=== PATIENT | female | born 1955 | race Caucasian/White ===

== ENCOUNTER 2020-07-14 10:37 | Outpatient (REF) | payer MEDICARE, SELFPAY ==
[2020-07-14 13:51] LABS: Glucose Urine UA NEG (NEG); Leukocyte Esterase Urine NEG (NEG); Nitrite Urine NEG (NEG); Specific Gravity - Urine >= 1.030 (1.005-1.025); Urine Blood NEG (NEG); Urine Ketones NEG (NEG); Urine Protein NEG (NEG-TRACE)
[2020-07-14 13:52] LABS: Appearance Urine CLOUDY; Color Urine YELLOW
[2020-07-14 13:55] LABS: Hematocrit 41.7 % (37-47); Hemoglobin 13.7 g/dl (12.0-16.0); Mean Corpuscular HGB Conc 32.9 g/dl (31.0-35.0); Mean Corpuscular Volume 88.2 fL (80-98); Mean Platelet Volume 10.3 fL (9.4-12.3); Platelet Count 286 X10*3/uL (160-400); Red Blood Count 4.73 X10*6/uL (4.20-5.50); Red Cell Distribution Width 14.5 % (11.0-16.0); White Blood Count 8.5 X10*3/uL (4.8-10.8)
[2020-07-14 13:58] LABS: RBC Urine 0 /HPF (0); WBC Urine 0 /HPF (0-4)
[2020-07-14 13:59] LABS: Amorphous Sediment Urine 4+ /LPF
[2020-07-14 14:21] LABS: Alanine Aminotransferase 12 U/L (0-31); Albumin Level 3.9 g/dL (3.5-5.0); Alkaline Phosphatase 118 U/L (39-117); Anion Gap 12 (12-20); Aspartate Amino Transferase 14 U/L (5-31); Bilirubin Total 0.4 mg/dL (0.0-1.0); Blood Urea Nitrogen 18 mg/dL (9-16); Calcium 8.9 mg/dL (8.4-10.2); Carbon Dioxide 25 mmol/L (22-29); Chloride 108 mmol/L (96-108); Cholesterol 159 mg/dL; Estimated Glomerular Filt Rate > 60; Glucose Fasting 97 mg/dL (60-99); HDL Cholesterol 47 mg/dL; LDL Cholesterol Calculated 89 mg/dl; Potassium 4.2 mmol/L (3.3-5.1); Sodium 141 mmol/L (135-145); Total Protein 6.8 g/dL (6.5-8.0); Triglycerides 116 mg/dL
[2020-07-14 14:44] LABS: TSH reflex Free T4 1.61 uIU/mL (0.32-4.0)
== END 2020-07-14 10:38 | disposition home or self-care (01) ==
LOC: HO.HMGCLDS 10:37
PROVIDERS: PCP Nurse Practitioner Family; Visit Provider Internal Medicine
DX: Z00.00 Encounter for general adult medical examination without abnormal findings (principal); E03.9 Hypothyroidism, unspecified
CPT/HCPCS: 36415; 80053; 80061; 81001; 84443; 85027

== ENCOUNTER 2022-12-17 13:41 | Outpatient (AMB) | payer MEDICARE, SELFPAY ==
[2022-12-17 14:16] VITALS: BP 116/60; PULSE 61; TEMP 36.3; O2SAT 98; BMI 41.5
--- NOTE | 2022-12-17 14:16 | AM.OFFWIN_ITS ---
Intake Vital Signs 12/17/22 14:16 Height 5 ft 2 in Weight 227 lb BMI 41.5 BP 116/60 Blood Pressure Location Rt brachial Position Sitting Pulse 61 Pulse Source Pulse Oximeter Temp 97.4 F Temp Source Temporal Artery Scan Pulse Oximetry (%) 98 Intake Visit Reasons: EP, cough, sore throat (masked) Intake Note: pt is here for c.o cough, sore throat Patient Tobacco Use Status: Current someday Tobacco user Allergies No Known Allergies Allergy (Verified 12/17/22 14:16) Do you need a note to return to daycare/school/sports/work: Yes HPI EP, cough, sore throat (masked) 2 HPI Details Patient presents for a sick visit. Reporting symptoms of sinus congestion, sore throat and difficulty swallowing. Low-grade fever. No family member is sick. No recent travel. Patient reports symptoms of malaise and fatigue. [facility] Medical History Left wrist fracture History of ectopic Hypothyroidism Annual physical exam Surgical History H/O tubal ligation Hx of section Family History Father Asthma Social History Housing: House Alcohol intake: never Patient Tobacco Use Status: Current someday Tobacco user Cigarettes Per Day: 2 Years Smoked: 17 years old e-Cigarette/Vaping Use: Never Used service: No Current occupational status: employed Cognitive needs: No Hearing needs: No Vision needs: Yes (has glasses) Physical Exam Vital Signs: Last Vital Signs Temp 97.4 F 12/17/22 14:16 Pulse 61 12/17/22 14:16 BP 116/60 12/17/22 14:16 Pulse Ox 98 12/17/22 14:16 BMI result Body Mass Index 41.5 Const General: cooperative and healthy appearing Nutritional Appearance: well nourished Orientation/consciousness: patient oriented x3 Limitations: no limitations HEENT Head: Yes normal to inspection Eyes General: appearance normal, both eyes and all related structures Neck Neck: Yes normal visual inspection Chest Chest palpation & inspection: normal palpation of entire chest wall Resp Effort & Inspection: normal respiratory effort Neuro General: patient oriented x3 Results AMB Rapid Strep AMB Rapid Strep Negative Last Edit by Clement Henson CMA on 12/17/22 14 :41 Results Reviewed Results Reviewed: Laboratory Last Values Strep Scn Rapid Clinic Negative 12/17/22 14:25 Assessment & Plan Assessment & Plan (1) Upper respiratory tract infection: Code(s): J06.9 - Acute upper respiratory infection, unspecified Plan: Antibiotics ordered. Increase fluid intake. Tylenol for aches and pains. If symptoms worsen, follow-up here for a recheck. Orders: Orders AMB Rapid Strep Screen Today Z13.9 - Encounter for screening, unspecified Medications: New azithromycin take 500 mg today (day 1), then 250 mg for 4 days (days 2-5) PO 6 tabs 0RF prednisone 60 mg (3 x 20 mg) PO DAILY 9 tabs 0RF Coding Level of Care Code Est Pt Level 3 (47501) Diagnoses Upper respiratory tract infection J06.9
== END 2022-12-17 15:13 | disposition home or self-care (01) ==
PROVIDERS: PCP Nurse Practitioner Family; Visit Provider Internal Medicine
DX: J06.9 Acute upper respiratory infection, unspecified (principal); J02.9 Acute pharyngitis, unspecified
CPT/HCPCS: 87880; 99213

== ENCOUNTER 2022-12-17 16:38 | Outpatient (REF) | payer MEDICARE, SELFPAY ==
[2022-12-17 17:28] LABS: Influenza A PCR NEGATIVE (Negative); Influenza B PCR NEGATIVE (Negative); Resp Syncy Virus RNA Qual PCR NEGATIVE (Negative); SARS COV2 PCR INHOUSE NEGATIVE (Negative)
== END 2022-12-17 16:39 | disposition home or self-care (01) ==
LOC: HO.LNP 16:38
PROVIDERS: Visit Provider Internal Medicine
DX: Z11.52 Encounter for screening for COVID-19 (principal); Z20.822 Contact with and (suspected) exposure to COVID-19; R43.9 Unspecified disturbances of smell and taste
CPT/HCPCS: 0241U

== ENCOUNTER 2023-10-23 08:36 | Outpatient (REF) | payer MEDICARE, SELFPAY ==
[2023-10-23 10:09] LABS: MANUAL DIFF FLAG NO
[2023-10-23 10:13] LABS: Basophils Absolute Auto 0.1 X10*3/uL (0.0-0.2); Basophils Percent Auto 1.1 % (0-2); Eosinophils Absolute Auto 0.4 X10*3/uL (0.0-0.4); Eosinophils Percent Auto 5.1 % (0-4); Hematocrit 39.5 % (37.0-47.0); Hemoglobin 13.4 g/dl (12.0-16.0); Imm Gran Abs Auto 0.05 X10*3/uL (0.00-0.03); Imm Gran Pct Auto 0.6 % (0.0-0.4); Lymphocytes Absolute Auto 2.1 X10*3/uL (1.2-4.9); Lymphocytes Percent Auto 25.3 % (20-40); Mean Corpuscular HGB Conc 33.9 g/dl (31.0-35.0); Mean Corpuscular Hemoglobin 31.5 pg (27.0-33.0); Mean Corpuscular Volume 92.9 fL (80.0-98.0); Mean Platelet Volume 9.8 fL (9.4-12.3); Monocytes Absolute Auto 0.6 X10*3/uL (0.1-1.2); Monocytes Percent Auto 7.6 % (2-11); Neutrophils Percent Auto 60.3 % (45-73); Platelet Count 263 X10*3/uL (160-400); Red Blood Count 4.25 X10*6/uL (4.20-5.50); Red Cell Distribution Width 15.1 % (11.0-16.0); White Blood Count 8.3 X10*3/uL (4.8-10.8)
[2023-10-23 10:25] LABS: Appearance Urine Cloudy; Color Urine Dark Yellow; Glucose Urine UA Negative (Negative); Leukocyte Esterase Urine Negative (Negative); Nitrite Urine Negative (Negative); PH 5.5 (5.0-9.0); Specific Gravity - Urine 1.025 (1.005-1.025); Urine Blood Negative (Negative); Urine Ketones Negative (Negative); Urine Protein Negative (Neg-Trace)
[2023-10-23 10:28] LABS: Estimated Average Glucose 105 mg/dL; Hemoglobin A1c % 5.3 % (<6.0)
[2023-10-23 10:53] LABS: Alanine Aminotransferase 12 U/L (0-31); Albumin Level 3.7 g/dL (3.5-5.0); Alkaline Phosphatase 100 U/L (39-117); Anion Gap 10 (12-20); Aspartate Amino Transferase 14 U/L (5-31); Bilirubin Total 0.4 mg/dL (0.0-1.0); Blood Urea Nitrogen 13 mg/dL (9-16); Calcium 8.6 mg/dL (8.4-10.2); Carbon Dioxide 25 mmol/L (22-29); Chloride 110 mmol/L (96-108); Cholesterol 163 mg/dL (<200); Estimated Glomerular Filt Rate > 60; Glucose Fasting 102 mg/dL (60-99); HDL Cholesterol 46 mg/dL (>40); LDL Cholesterol Calculated 92 mg/dL (<100); Sodium 141 mmol/L (135-145); TSH reflex Free T4 4.73 uIU/mL (0.32-4.0); Total Protein 6.7 g/dL (6.5-8.0); Triglycerides 128 mg/dL (<150); Vitamin D 25-OH Total 22.9 ng/mL (>30)
[2023-10-23 10:58] LABS: Creatinine Urine 213.12 mg/dL
[2023-10-23 11:41] LABS: Free T4 (Free Thyroxine) 1.01 ng/dL (0.71-1.85)
== END 2023-10-23 08:37 | disposition home or self-care (01) ==
LOC: HO.HMGCLDS 08:36
PROVIDERS: PCP Nurse Practitioner Family; Visit Provider Nurse Practitioner Family
DX: E11.9 Type 2 diabetes mellitus without complications (principal); I48.91 Unspecified atrial fibrillation; E03.9 Hypothyroidism, unspecified; E55.9 Vitamin D deficiency, unspecified; Z78.0 Asymptomatic menopausal state
CPT/HCPCS: 36415; 80053; 80061; 81003; 82043; 82306; 82570; 83036; 84439; 84443; 85025

== ENCOUNTER 2024-04-03 11:08 | Outpatient (REF) | payer MEDICARE, SELFPAY ==
--- OUTSIDE RECORDS SUMMARY | 2024-04-03 12:12 | XMS_ITS | Clinical Summary ---
[facility] [address] [place] [address] Care Team Providers Care Employment Training Specialist Name Role Phone Girma Reynolds MD Primary Care Provider [phone] Social History Tobacco Use Types Packs/Day Years Used Date Smoking Tobacco: Never Assessed Sex and Gender Information Value Date Recorded Sex Assigned at Not on file Gender Identity Not on file Sexual Orientation Not on file Plan of Treatment Health Maintenance Due Date Last Done Comments Breast Cancer Screening 1954 DTaP,Tdap,and Td Vaccines (1 - Tdap) 1973 Zoster Vaccines (1 of 2) 2004 Pneumococcal Vaccine: 65+ Ye ars (1 of 1 - PCV) 09/26/2019 COVID-19 Vaccine (2023-2 5 season) 2023 Influenza Vaccine (#1) 2023 Colorectal Cancer Screening: Colonoscopy 12/03/2023 Depression Screening 12/03/2023 Falls Risk Assessment 12/03/2023 Hepatitis C Screening 12/03/2023 Osteoporosis Screening (Bone Density Screening) 12/03/2023 Social Influencers of Health Screening 12/03/2023 RSV Immunization Patients 60 + Years Old (1 - 1-dose 75+ series) 2029 HIB Vaccines Aged Out No longer eligi ble based on patient's age to complete this topic HPV Vaccines Aged Out No longer eligi ble based on patient's age to complete this topic Hepatitis A Vaccines Aged Out No long er eligible based on patient's age to complete this topic Hepatitis B Vaccines Aged Out No long er eligible based on patient's age to complete this topic IPV Vaccines Aged Out No longer eligi ble based on patient's age to complete this topic MMR Vaccines Aged Out No longer eligi ble based on patient's age to complete this topic Meningococcal ACWY Vaccine Aged Out N o longer eligible based on patient's age to complete this topic RSV Immunization Patients Un ty 20 months Aged Out No longer eligible b ased on patient's age to complete this topic Varicella Vaccines Aged Out No longer eligible based on patient's age to complete this topic Care Teams Employment Training Specialist Relationship Specialty Start Date End Date Girma Reynolds MD PCP - General 12/02/14
[2024-04-03 13:36] LABS: MANUAL DIFF FLAG NO
[2024-04-03 13:48] LABS: Basophils Absolute Auto 0.1 X10*3/uL (0.0-0.2); Basophils Percent Auto 0.7 % (0-2); Eosinophils Absolute Auto 0.4 X10*3/uL (0.0-0.4); Eosinophils Percent Auto 4.5 % (0-4); Hematocrit 40.4 % (37.0-47.0); Hemoglobin 13.5 g/dl (12.0-16.0); Imm Gran Abs Auto 0.04 X10*3/uL (0.00-0.03); Imm Gran Pct Auto 0.5 % (0.0-0.4); Lymphocytes Absolute Auto 2.2 X10*3/uL (1.2-4.9); Lymphocytes Percent Auto 25.8 % (20-40); Mean Corpuscular HGB Conc 33.4 g/dl (31.0-35.0); Mean Corpuscular Hemoglobin 31.7 pg (27.0-33.0); Mean Corpuscular Volume 94.8 fL (80.0-98.0); Mean Platelet Volume 9.6 fL (9.4-12.3); Monocytes Absolute Auto 0.7 X10*3/uL (0.1-1.2); Monocytes Percent Auto 8.5 % (2-11); Neutrophils Absolute Auto 5.2 x10*3/uL (2.0-8.3); Platelet Count 268 X10*3/uL (160-400); Red Blood Count 4.26 X10*6/uL (4.20-5.50); Red Cell Distribution Width 15.1 % (11.0-16.0); White Blood Count 8.6 X10*3/uL (4.8-10.8)
[2024-04-03 14:07] LABS: Appearance Urine Clear; Color Urine Yellow; Glucose Urine UA Negative (Negative); Leukocyte Esterase Urine Negative (Negative); Nitrite Urine Negative (Negative); PH 6.5 (5.0-9.0); Urine Blood Negative (Negative); Urine Ketones Negative (Negative); Urine Protein Negative (Neg-Trace)
[2024-04-03 14:19] LABS: Alanine Aminotransferase 12 U/L (0-31); Albumin Level 3.8 g/dL (3.5-5.0); Alkaline Phosphatase 96 U/L (39-117); Anion Gap 15 (12-20); Aspartate Amino Transferase 19 U/L (5-31); Bilirubin Total 0.4 mg/dL (0.0-1.0); Blood Urea Nitrogen 15 mg/dL (9-16); Calcium 8.8 mg/dL (8.4-10.2); Carbon Dioxide 25 mmol/L (22-29); Chloride 106 mmol/L (96-108); Estimated Glomerular Filt Rate > 60; Glucose Random 91 mg/dL (60-115); Potassium 4.4 mmol/L (3.3-5.1); Sodium 142 mmol/L (135-145); TSH reflex Free T4 2.13 uIU/mL (0.32-4.0); Total Protein 7.3 g/dL (6.5-8.0)
== END 2024-04-03 11:09 | disposition home or self-care (01) ==
LOC: HO.HMGCLDS 11:08
PROVIDERS: PCP Nurse Practitioner Family; Visit Provider Nurse Practitioner Family
DX: E03.9 Hypothyroidism, unspecified (principal)
CPT/HCPCS: 36415; 80053; 81003; 84443; 85025

== ENCOUNTER 2024-04-14 14:02 | Outpatient (AMB) | payer MEDICARE, SELFPAY ==
--- NOTE | 2024-04-14 14:04 | A.OFFVIS_ITS ---
Intake Vital Signs 04/14/24 14:05 Height 5 ft 2 in Weight 232 lb BMI 42.4 BP 118/70 Blood Pressure Location Rt brachial Position Sitting Pulse 56 Pulse Source Pulse Oximeter Pulse Oximetry (%) 98 Intake Visit Reasons: AWV Allergies No Known Allergies Allergy (Verified 04/14/24 15:42) Medication List - Last Reconciled 04/14/24 by ROCÍO Mtz- atorvastatin 20 mg PO BEDTIME levothyroxine 100 mcg PO DAILY 30 days Do you need a note to return to daycare/school/sports/work: No HPI AWV HPI Details ccc in scan pile, ppp in scan pile HPI Comments History of Present Illness Details Chief Complaint The patient reports experiencing bilateral foot pain and feelings of diaphoresis with palpitations. History of Present Illness The patient is a 68-year-old female presenting with bilateral foot pain and anxiety-related episodes. She experiences pain in both heels and sometimes the dorsal mid-aspect of the left foot. She denies that the pain is worse in the morning. 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 She is also morbidly obese, which may contribute to her symptoms. Previously, a clinical assessment revealed dorsiflexion of toes and palpation tenderness to the right heel, with no active erythema. The patient also reports episodes of diaphoresis with palpitations and blurred vision, primarily occurring at work. These anxiety-like symptoms appear randomly once a month. She had previously presented to the ER with these episodes and was found to have abnormal thyroid function at the time, which has since stabilized. An echocardiogram and telemetry were benign, troponin neg. Her clinical history could suggest a potential anxiety component related to work stress??? Did have some bradycardia while seen in the ED. Social History - Employment: Works part-time at a [employer] store with prolonged periods on her feet. - Substance Use: Has a history of tobacc o smoking, approximately half a pack per day since early teenage years. - Activity Level: Limited due to morbid obesity and occupation requirements. Health Maintenance - Participation in a low-dose CT scan pr ogram for lung cancer screening due to smoking history. Review of Systems - Cardiovascular: Reports diaphoresis an d dizziness. - Eyes: Reports episodes of blurred visi on. Physical Exam General: Cooperative, healthy appearing, comfortable, no acute distress and well developed, obese Orientation: Patient oriented x3 Limitations: No limitations Head: Normal to inspection Ears: Hearing grossly normal bilaterally Nose: Normal external nose present Face and sinus: Normal facial exam Eyes: Appearance normal, both eyes and all related structures Neck: Normal visual inspection and Yes full ROM Respiratory: Normal respiratory effort and able to speak in complete sentences. Clear to auscultation bilaterally Cardiovascular: Regular rate and rhythm. Normal S1 and S2 GI: Normal to inspection. Soft to palpation and nontender Skin: Lesion noted just below the right eye on the cheek, papular/vesicular lesion with some center scabbing Neuro: Patient oriented x3 Extremities: Slight tenderness noted to the right heel, very slight edema to the left foot. Normal to inspection otherwise. pain noted to r heel with dorsiflexion of toes and palpation of heel. Results Plan - Order X-rays for further evaluation of bilateral foot pain. - Refer to a low-dose CT scan program du e to tobacco use history. - Monitor her with a Holter monitor for 3 days to further evaluate anxiety- related symptoms. - Refer the patient to dermatology for e valuation and management of the facial lesion. Discussion Notes I discussed with the patient the application of further diagnostic imaging, including X-rays, to evaluate the bilateral foot pain. I explained the importance of participating in a lung cancer screening program due to her prolonged tobacco use history. We reviewed the potential anxiety component of her symptoms, and I suggested the use of a Holter monitor to elucidate any underlying cardiac causes. I instructed her on the referral to dermatology for the papular lesion on her cheek, explaining that early evaluation and management by a specialist are essential. Patient Instructions - Proceed with scheduled X-rays of the f eet. - Attend the low-dose CT scan appointmen t for lung screening. - Follow the instructions regarding the Holter monitor test. - Schedule and attend the dermatology re ferral for further analysis and treatment of the facial lesion. - Monitor for any changes in symptoms an d report any concerning developments. [facility] Medical History Left wrist fracture History of ectopic Hypothyroidism Annual physical exam Surgical History H/O tubal ligation Hx of section Family History Father Asthma Social History Housing: House Alcohol intake: never Patient Tobacco Use Status: Current someday Tobacco user Cigarettes Per Day: 2 Years Smoked: 17 years old e-Cigarette/Vaping Use: Never Used service: No Current occupational status: employed Cognitive needs: No Hearing needs: No Vision needs: Yes (has glasses) Questionnaire Medicare Wellness Checkup What [age] your [age]?: 65-68 What gender do you identify with?: female During the past 4 weeks, how much have you been bothered by emotional problems such as feeling anxious, depressed, irritable, sad or downhearted, and blue?: moderately During the past 4 weeks, has your physical & emotional health limited your social activities with family, friends, neighbors, or groups?: moderately During the past 4 weeks, how much bodily pain have you generally had?: mild pain During the past 4 weeks, was someone available to help you if you needed & wanted help?: yes, as much as I wanted During the past 4 weeks, what was the hardest physical activity you could do for at least 2 minutes?: moderate Can you get to places out of walking distance without help? (For eg., can you travel alone on buses, taxis or drive your car?): Yes Can you go shopping for groceries or clothes without someone's help?: Yes Can you prepare your own meals?: Yes Can you do your housework without help?: No Because of any health problems, do you need the help of another person with your personal care needs such as eating, bathing, dressing or getting around the house?: Yes Can you handle your own money without help?: No During the past 4 weeks, how would you rate your health in general?: fair During the past 4 weeks how have things been going for you?: good & bad parts about equal Are you having difficulties driving your car?: no Do you always fasten your seat belt when you are in a car?: yes, usually During past 4 weeks, have you been bothered by the following: never: Sexual problems? and Problems using the telephone?, seldom: Trouble eating well?, sometimes: Falling or dizzy when standing up and Tiredness or fatigue? and often: Teeth or denture problems? Have you fallen 2 or more times in the past year?: No Are you afraid of falling?: Yes Are you a smoker?: yes, but I'm not ready to quit During the past 4 weeks, how many drinks of wine, beer, or other alcoholic beverages did you have?: no alcohol at all Do you exercise for about 20 minutes 3 or more times a week?: no, I usually do not exercise this much Have you been given information to help with the following?: no: Hazards in your house that might hurt you? and no: Keeping track of your medications? How often do you have trouble taking medicines the way you have been told to take them?: I always take medicine as prescribed How confident are you that you can control & manage most of your health problems?: somewhat confident What is your race?: White Mini Mental State Exam (MMSE) Orientation What is the (year) (season) (date) (day) (month)?: year, season, date, day and month Where are we (state) (county) (town or city) (hospital) (floor)?: state, county, town or city, hospital/clinic and floor Registration Name of 3 unrelated objects clearly and slowly, then ask patient to repeat all 3 of them. (1st repeat determines score. Make sure they can repeat all three): object 1, object 2 and object 3 Attention & Calculation (CHOOSE ONE) Spell WORLD backwards (DLROW): 5 letters Recall Ask patient to repeat the 3 items from question #3.: object 1, object 2 and object 3 Language Show patient a wristwatch & ask what it is. Repeat for pencil.: watch and pencil Ask the patient to repeat the phrase 'No ifs, ands, or buts' after you.: correct Ask the patient to 'take a piece of paper with their right hand' 'fold paper in half' 'place paper on floor': take paper in right hand and fold paper in half Print the sentence 'CLOSE YOUR EYES' on a piece. If patient actually closes eyes then score.: followed written direction Give patient a blank piece of paper & ask to write a sentence. Score if it contains a noun & verb.: sentence contains subject and verb Ask patient to copy figure of intersecting pentagons exactly. Score if all 10 angles & 2 intersects are included.: all 10 angles present & 2 are intersected Score Score: 29 Activity of Daily Living Bathing - sponge bath, tub bath or shower: receives no assistance (gets in/out by self, if usual bathing means Dressing - getting clothes from closets & drawers, including inner/outer garments & fasteners.: gets clothes & gets completely dressed without help Toileting - going to the 'toilet room' for urine/bowel elimination & cleaning self/arranging clothes: goes to toilet room, cleans self, arranges clothes without help Transfer: moves in & out of bed and chair without help (may use support object) Continence: controls urination/bowel movements completely by self Feeding: feeds self without help Total Score: 0 Information obtained from: patient Using telephone: independent Traveling: independent Shopping: independent Preparing meals: independent Housework: independent Taking medicine: independent Managing money: independent PHQ-9 Over the last 2 weeks, how often have you been bothered by any of the following problems? 1. Little interest or pleasure in doing things: several days 2. Feeling down, depressed, or hopeless: several days 3. Trouble falling or staying asleep, or sleeping too much: more than half the days 4. Feeling tired or having little energy: more than half the days 5. Poor appetite or overeating: more than half the days 6. Feeling bad about yourself - or that you are a failure or have let yourself or your family down: several days 7. Trouble concentrating on things, such as reading the newspaper or watching television: not at all 8. Moving or speaking so slowly that other people could have noticed. Or the opposite - being so fidgety or restless that you have been moving around a lot more than usual: not at all 9. Thoughts that you would be better off or of hurting yourself in some way: not at all Total score: 9 Depression Screening Interpretation: Negative Depression Screening Done: Yes 06628 - PHQ-9 Billing: Yes Source: Developed by Drs. Darren Cortes, Judi North, Dave Mejia and colleagues, with an educational miracle from [employer]. MILAGRO-7 AMB Questionnaire MILAGRO-7 Date MILAGRO - 7 assessed: 04/14/24 Feeling nervous, anxious, or on edge: 1 = Several days Not being able to stop or control worryin = Several days Worrying too much about different things: 1 = Several days Trouble relaxin = More than half the days Being so restless that it is hard to sit still: 1 = Several days Becoming easily annoyed or irritable: 0 = Not at all Feeling afraid as if something awful might happen: 0 = Not at all Total MILAGRO-7 score (0-4 normal; 5-9 mild; 10-14 moderate; 15-21 severe): 6 Source: Developed by Drs. Darren Cortes, Judi North, Dave Mejia and colleagues, with an educational miracle from [employer]. MILAGRO-7 Assessment Billing MILAGRO-7 Assessment Tool: MILAGRO-7 Assessment 93183 Physical Exam Vital Signs: Last Vital Signs Pulse 56 04/14/24 14:05 BP 118/70 04/14/24 14:05 Pulse Ox 98 04/14/24 14:05 BMI result Body Mass Index 42.4 Neuro Other: whisper test passed, neg rhomberg, able to tandem walk, stand from sitting position Assessment & Plan Assessment & Plan (1) Vitamin D deficiency: Code(s): E55.9 - Vitamin D deficiency, unspecified (2) Postmenopausal: Code(s): Z78.0 - Asymptomatic menopausal state (3) Foot pain, bilateral: Code(s): M79.671 - Pain in right foot; M79.672 - Pain in left foot (4) Smoker: Code(s): F17.200 - Nicotine dependence, unspecified, uncomplicated (5) Diaphoresis: Code(s): R61 - Generalized hyperhidrosis (6) Facial lesion: Code(s): L98.9 - Disorder of the skin and subcutaneous tissue, unspecified Plan . Orders: Orders XR DEXA axial skeleton Today E55.9 - Vitamin D deficiency, unspecified, Z78.0 - Asymptomatic menopausal state XR foot LT 2V Today M79.671 - Pain in right foot, M79.672 - Pain in left foot XR foot RT 2V Today M79.671 - Pain in right foot, M79.672 - Pain in left foot ECG 3 day holter monitor Today R61 - Generalized hyperhidrosis Referrals Lung Cancer Screening Referral F17.200 - Nicotine dependence, unspecified, uncomplicated Dermatology Referral L98.9 - Disorder of the skin and subcutaneous tissue, unspecified Quality Reporting (2019) Depression/Bipolar (159/160/161/177) PHQ-9: Total score: 9 Coding Level of Care Code Medicare First (G0438) Est Pt Level 3 (90493) Diagnoses Vitamin D deficiency E55.9 Postmenopausal Z78.0 Foot pain, bilateral M79.671; M79.672 Smoker F17.200 Diaphoresis R61 Facial lesion L98.9 CPT Codes Advance Care Planning - Time spent: 1-15 minutes, on File ([id number]) Additional Codes MILAGRO-7 Assessment Billing - MILAGRO-7 Assessment Tool: MILAGRO-7 Assessment 70697 ([id number]) PHQ-9 - 37728 - PHQ-9 Billing: Yes ([id number]) Advance Care Planning Forms completed: Health Care Proxy (copy in scan pile), MOLST (filled out, in scan pile) and Living will (is done, according to pt) Time spent: 1-15 minutes, on File Actual minutes spent: 12
[2024-04-14 14:05] VITALS: BP 118/70; PULSE 56; O2SAT 98; BMI 42.4
--- OUTSIDE RECORDS SUMMARY | 2024-04-14 15:06 | XMS_ITS | Clinical Summary ---
Author Organization [facility] ity Address [id number] [place] [id number] Care Team Providers Care Catering Truck Operator Name Role Phone Girma Reynolds MD Primary Care Provider [phone] Social History Tobacco Use Types Packs/Day Years Used Date Smoking Tobacco: Never Assessed Comments Unknown Sex and Gender Information Value Date Recorded Sex Assigned at Not on file Legal Sex Female 1:57 AM EST Gender Identity Not on file Sexual Orientation Not on file Plan of Treatment Health Maintenance Due Date Last Done Comments Breast Cancer Screening 1954 DTaP,Tdap,and Td Vaccines (1 - Tdap) 1973 Pneumococcal Vaccine: 50+ Ye ars (1 of 1 - PCV) 2004 Zoster Vaccines (1 of 2) 2004 COVID-19 Vaccine ( - 2023-2 5 season) 2023 Influenza Vaccine (#1) 2023 [...] patient's age to complete this topic Meningococcal B Vacine Aged Out No lo nger eligible based on patient's age to complete this topic RSV Immunization Patients Un ty 20 months Aged Out No longer eligible b ased on patient's age to complete this topic Varicella Vaccines Aged Out No longer eligible based on patient's age to complete this topic Care Teams Catering Truck Operator Relationship Specialty Start Date End Date Girma Reynolds MD PCP - General 12/02/14
== END 2024-04-14 15:34 | disposition home or self-care (01) ==
PROVIDERS: PCP Nurse Practitioner Family; Visit Provider Nurse Practitioner Family
DX: Z00.00 Encounter for general adult medical examination without abnormal findings (principal); E55.9 Vitamin D deficiency, unspecified; Z78.0 Asymptomatic menopausal state; M79.671 Pain in right foot; M79.672 Pain in left foot; F17.200 Nicotine dependence, unspecified, uncomplicated; R61 Generalized hyperhidrosis; L98.9 Disorder of the skin and subcutaneous tissue, unspecified

== ENCOUNTER → 2024-04-14 14:02 | Outpatient (BNVA) | payer MEDICARE, SELFPAY | PROVIDERS: PCP Nurse Practitioner Family; Visit Provider Nurse Practitioner Family | DX: E55.9 Vitamin D deficiency, unspecified (principal); Z78.0 Asymptomatic menopausal state; M79.671 Pain in right foot; M79.672 Pain in left foot; R61 Generalized hyperhidrosis; L98.9 Disorder of the skin and subcutaneous tissue, unspecified; F17.200 Nicotine dependence, unspecified, uncomplicated; Z71.6 Tobacco abuse counseling | CPT/HCPCS: 96127; 99212 ==

== ENCOUNTER → 2024-04-29 13:08 | Outpatient (REF) | payer MEDICARE, SELFPAY ==
--- OUTSIDE RECORDS SUMMARY | 2024-04-29 15:36 | XMS_ITS | Clinical Summary ---
Author Organization [facility] ity Address [id number] [place] [phone] Care Team Providers Care Caustic Room Operator Name Role Phone Girma Reynolds MD Primary Care Provider [phone] Social History Tobacco Use Types Packs/Day Years [...] age to complete this topic Care Teams Caustic Room Operator Relationship Specialty Start Date End Date Girma Reynolds MD PCP - General 12/02/14
== END ==
LOC: HO.CARD 13:08
PROVIDERS: PCP Nurse Practitioner Family; Visit Provider Nurse Practitioner Family
DX: R61 Generalized hyperhidrosis (principal); R42 Dizziness and giddiness; R00.2 Palpitations
CPT/HCPCS: 93242

== ENCOUNTER → 2024-04-29 13:11 | Outpatient (BNV) | payer MEDICARE, SELFPAY | PROVIDERS: PCP Nurse Practitioner Family; Visit Provider Internal Medicine Cardiovascular Disease | DX: R00.1 Bradycardia, unspecified (principal) | CPT/HCPCS: 93244 ==

== ENCOUNTER 2024-04-30 14:25 | Outpatient (REF) | payer MEDICARE, SELFPAY ==
--- NOTE | ~2024-04-30 | XR_ITS ---
CLINICAL HISTORY: Pain in left foot. 3 view left foot Comparison: None Findings: Bones intact. No dislocations. Ovzt-ga-ozyxohrk degenerative changes in the midfoot and forefoot. No ankle effusion. No radiopaque foreign body. There is a 3 mm plantar tendon enthesophyte. There are Achilles tendon enthesophytes measuring up to 4 mm. IMPRESSION: 1. No acute fracture or dislocation. 2. Small calcaneal spurs. 3. Ekyv-qw-cdmofabj degenerative changes. This document has been electronically signed by: Dea Jensen DO on 05/02/2024 12:06:31
--- NOTE | ~2024-04-30 | XR_ITS ---
CLINICAL HISTORY: M79.671 - Pain in right foot 3 view right foot Comparison: None Findings: Bones intact. No dislocations. There are klnv-pw-hqosovmj degenerative changes in the midfoot and forefoot. No ankle effusion. No radiopaque foreign body. There is a 4 mm plantar tendon enthesophyte. There is a 3 mm Achilles tendon enthesophyte. IMPRESSION: 1. No acute fracture or dislocation. 2. Small calcaneal spurs. 3. Bfjr-qe-bljdxvov degenerative changes. This document has been electronically signed by: Dea Jensen DO on 05/02/2024 12:03:45
--- OUTSIDE RECORDS SUMMARY | 2024-04-30 17:46 | XMS_ITS | Clinical Summary ---
Author Organization [facility] ity Address [id number] [place] [id number] Care Team Providers Care Director Of Religious Life Name Role Phone Girma Reynolds MD Primary Care Provider [phone] Social History Tobacco Use Types Packs/Day Years [...] age to complete this topic Care Teams Director Of Religious Life Relationship Specialty Start Date End Date Girma Reynolds MD PCP - General 12/02/14
== END 2024-04-30 14:26 | disposition home or self-care (01) ==
LOC: HO.HMGCX 14:25
PROVIDERS: PCP Nurse Practitioner Family; Visit Provider Nurse Practitioner Family
DX: M79.671 Pain in right foot (principal); M79.672 Pain in left foot
CPT/HCPCS: 73630

== ENCOUNTER → 2024-04-30 14:39 | Outpatient (BNV) | payer MEDICARE, SELFPAY | PROVIDERS: PCP Nurse Practitioner Family; Visit Provider Radiology Diagnostic Radiology | DX: M77.32 Calcaneal spur, left foot (principal); M77.31 Calcaneal spur, right foot | CPT/HCPCS: 73630 ==

== ENCOUNTER 2024-05-04 13:56 | Outpatient (AMB) | payer MEDICARE, SELFPAY ==
[2024-05-04 14:12] VITALS: PULSE 70; O2SAT 96; BMI 43.0
--- NOTE | 2024-05-04 14:12 | MHC.OFFVIS ---
Vital Signs 05/04/24 14:12 Height 5 ft 2 in Weight 235 lb BMI 43.0 Pulse 70 Pulse Source Pulse Oximeter Pulse Oximetry (%) 96 Oxygen Delivery Method Room Air Intake Visit Reasons: INP-RYAN Intake Note: Patient presents for inpatient referral for Sleep Apnea. Allergies No Known Allergies Allergy (Verified 04/14/24 15:42) HPI Comments Details: 68 year old female here for sleep evaluation per PcP. She goes to bed at midnight to 1am, gets up 7am, and 1 bathroom break. She has had Low BP since Sep 2023, at work she became dizzy, SOB, heart palpitations, with dry mouth, thyroid was high when taken to ER, she was started on Levothyroxine 100mcg. She c/o of contant fatigue and abnormal sleeping patterns. She has Vision changes and needs a check up for her vision. She drinks 2 bottles of water 16 oz each, and 1/2 bottle of Gatorade. RLS numbness, tingling, painful cramps, r>l wakes her up at night. Doesn't radiate. She has to wake up and walk around and it feels better. She c/o r. heel pain> left heel pain, reviewed xrays bilateral foot spurs with patient. Memory is good. Mood is okay. Her diet is poor, eats late at night since she works the second shift and declines weight management today. She is a 1/2 pack smoker per day, and her Vitamin D is low today. [facility] Medical History Left wrist fracture History of ectopic Hypothyroidism Annual physical exam Surgical History H/O tubal ligation Hx of section Family History Father Asthma Social History Housing: House Alcohol intake: never Patient Tobacco Use Status: Current someday Tobacco user Cigarettes Per Day: 2 Years Smoked: 17 years old e-Cigarette/Vaping Use: Never Used service: No Current occupational status: employed Cognitive needs: No Hearing needs: No Vision needs: Yes (has glasses) Review of Systems Const All systems reviewed & are unremarkable except as noted in HPI and below Physical Exam Vital Signs: Last Vital Signs Pulse 70 05/04/24 14:12 Pulse Ox 96 05/04/24 14:12 Oxygen Delivery Method Room Air 05/04/24 14:12 BMI result Body Mass Index 43.0 Const General: cooperative, comfortable and no acute distress Orientation/consciousness: patient oriented x3 HEENT Face and sinus: Yes normal facial exam, Yes face symmetric and Yes other Teeth and gingiva: other ([place] score is 4) Eyes Pupils: Equal, round and reactive pupils present Neck Neck: Yes full ROM and Yes supple Resp Effort & Inspection: normal respiratory effort and able to speak in complete sentences Neuro General: patient oriented x3 and moves all extremities Cranial nerves: Yes CN's II-XII intact bilaterally, Yes Facial sensation intact/muscles of mastication intact, Yes Equal, round and reactive pupils present, Yes Normal accommodation reflex present, Yes Bilaterally intact EOM present, Yes Normal facial strength present, Yes Midline tongue present, Yes Ability to bilaterally rotate head present and Yes Ability to bilaterally elevate shoulders present Cognition (Neuro): normal cognition Gait exam (Neuro): Normal gait present Motor exam (neuro): 5/5 motor strength present throughout and Normal motor muscle tone present throughout Deep tendon reflexes (DTR's): Right triceps reflex intensity grade: 2+, Left triceps reflex intensity grade: 2+, Rt Biceps (C5, C6): 2+, Left biceps reflex intensity grade: 2+, Right brachioradialis reflex intensity grade: 2+, Left brachioradialis reflex intensity grade: 2+, Right patellar reflex intensity grade: 2+ and Left patellar reflex intensity grade: 2+ Psych Appearance: grossly normal Attitude: cooperative Results Reviewed Results Reviewed: Findings: Lfoot xray Bones intact. No dislocations. Fhvt-iq-stebkpul degenerative changes in the midfoot and forefoot. No ankle effusion. No radiopaque foreign body. There is a 3 mm plantar tendon enthesophyte. There are Achilles tendon enthesophytes measuring up to 4 mm. Findings: R. Foot Bones intact. No dislocations. There are nlfn-of-fblotqyu degenerative changes in the midfoot and forefoot. No ankle effusion. No radiopaque foreign body. There is a 4 mm plantar tendon enthesophyte. There is a 3 mm Achilles tendon enthesophyte. Assessment & Plan Assessment & Plan (1) Bilateral calcaneal spurs: Code(s): M77.31 - Calcaneal spur, right foot; M77.32 - Calcaneal spur, left foot Category: Medical (2) Vitamin D deficiency: Code(s): E55.9 - Vitamin D deficiency, unspecified Category: Medical (3) Dizziness: Code(s): R42 - Dizziness and giddiness Category: Medical (4) Sleep apnea: Code(s): G47.30 - Sleep apnea, unspecified Category: Medical Qualifiers: Sleep apnea type: unspecified type Qualified Code(s): G47.30 - Sleep apnea, unspecified (5) Insomnia: Code(s): G47.00 - Insomnia, unspecified Category: Medical Qualifiers: Insomnia type: adjustment Qualified Code(s): F51.02 - Adjustment insomnia Plan Fatigue insomnia evaluate with PSG Foot pain bone spurs orthopedic referral Low Vitamin D Orders: Orders RT PSG in-lab sleep study Today G47.30 - Sleep apnea, unspecified, I48.91 - Unspecified atrial fibrillation Referrals Orthopedics Referral M77.31 - Calcaneal spur, right foot, M77.32 - Calcaneal spur, left foot Medications: New cholecalciferol (vitamin D3) take one capsule by mouth daily at bedtime 50 mcg PO DAILY 60 caps 3RF Vit D deficiency MDD 2000 unit capsules E55.9 - Vitamin D deficiency, unspecified Coding Level of Care Code New Pt Level 4 (90440) Diagnoses Bilateral calcaneal spurs M77.31; M77.32 Vitamin D deficiency E55.9 Dizziness R42 Sleep apnea, unspecified type G47.30 Sleep apnea type: unspecified type Adjustment insomnia F51.02 Insomnia type: adjustment Time Spent (min) 40 Comment Evaluate Baseline Sleep Questionnaire Difficulty falling asleep: Yes Difficulty staying asleep?: Yes Number of arousals: 2+ Snoring: No Witnessed apneas: Yes Gasping arousals: No Nocturia: No GERD: No Vivid dreams: Yes Acting out dreams: No Abnormal behavior in sleep: No Abnormal movements in sleep: Yes Morning headaches: Yes (2-4 /week lasting several hours ) Excessive daytime sleepiness: Yes Daytime naps: No Restless legs: Yes Hallucinations: No Sleep paralysis: No Drop attacks: No Sleep Study: No CPAP: No
--- OUTSIDE RECORDS SUMMARY | 2024-05-04 15:49 | XMS_ITS | Clinical Summary ---
Author Organization [facility] ity Address [address] [place] [address] Care Team Providers Care Brand Advocate Name Role Phone Girma Reynolds MD Primary Care Provider [phone] Social History Tobacco Use Types Packs/Day Years [...] age to complete this topic Care Teams Brand Advocate Relationship Specialty Start Date End Date Girma Reynolds MD PCP - General 12/02/14
== END 2024-05-04 15:36 | disposition home or self-care (01) ==
PROVIDERS: PCP Nurse Practitioner Family; Visit Provider Physician Assistant Medical
DX: M77.31 Calcaneal spur, right foot (principal); M77.32 Calcaneal spur, left foot; E55.9 Vitamin D deficiency, unspecified; R42 Dizziness and giddiness; G47.30 Sleep apnea, unspecified; F51.02 Adjustment insomnia
CPT/HCPCS: 99204

== ENCOUNTER → 2024-05-04 13:56 | Outpatient (BNVA) | payer MEDICARE, SELFPAY | PROVIDERS: PCP Nurse Practitioner Family; Visit Provider Physician Assistant Medical | DX: G47.30 Sleep apnea, unspecified (principal); R42 Dizziness and giddiness; F51.02 Adjustment insomnia; M77.31 Calcaneal spur, right foot; M77.32 Calcaneal spur, left foot; E55.9 Vitamin D deficiency, unspecified | CPT/HCPCS: 99202 ==

== ENCOUNTER 2024-06-05 10:40 | Outpatient (AMB) | payer MEDICARE, SELFPAY ==
--- NOTE | 2024-06-05 07:58 | MHC.OFFVIS ---
Intake Visit Reasons: Current Smoker Allergies No Known Allergies Allergy (Verified 04/14/24 15:42) HPI HPI Current Smoker: Details: Initial visit for this 68yo smoker with a 24PYH. Patient started smoking at age 20 for 48 years at 1/2ppd. . Denies marijuana use. Denies second hand smoke exposure. Denies exposure to chemicals or substances like asbestos. . Denies known family history of lung cancer. Denies personal history of cancers. Denies chest CT in last year. History left lung biopsy for benign finding in . . Denies recent travel outside the [place]. Denies recent respiratory illness or recent hospitalization for respiratory issues. Denies testing positive for COVID. Admits receiving COVID Vaccine. . Denies fever, chills, new/worsening cough, hemoptysis, hoarseness or dysphagia. Denies significant chest pain, significant dyspnea or unintentional weight loss. Patient Lung Cancer Screening Questionnaire reviewed with patient by provider. . Shared Decision Making Completed. Patient meets criteria. Discussed in detail with patient, the risk vs benefit of LDCT screening. Patient consents to proceed with scan. Discussed smoking cessation. [facility] Medical History (Updated 06/05/24 @ 10:46 by Lanny Wells PA-C) Postmenopausal Vitamin D deficiency Dyslipidemia Nicotine dependence, cigarettes, uncomplicated Left wrist fracture History of ectopic Hypothyroidism Surgical History (Updated 06/05/24 @ 10:51 by Lanny Wells PA-C) History of lung biopsy History of tonsillectomy History of D&C History of History of tubal ligation History of surgery on left wrist Family History Father Asthma Social History (Updated 06/05/24 @ 10:47 by Lanny Wells PA-C) Housing: House Alcohol intake: never Patient Tobacco Use Status: Current someday Tobacco user Years Smoked: (onset 20yo, 1/2ppd x 48yrs, 24PYH) e-Cigarette/Vaping Use: Never Used service: No Current occupational status: employed Cognitive needs: No Hearing needs: No Vision needs: Yes (has glasses) Assessment & Plan Assessment & Plan (1) Nicotine dependence, cigarettes, uncomplicated: Comment: (onset 20yo, 1/2ppd x 48yrs, 24PYH) Code(s): F17.210 - Nicotine dependence, cigarettes, uncomplicated Category: Medical Plan: - SDM visit completed today in office. - Patient meets criteria for LDCT for lung cancer screening purposes and is asymptomatic. - Smoking cessation counseling offered. Patients can always call [phone]. - Will arrange for a LDCT scan of the chest for screening purposes at [facility]. - Risks, benefits, and alternatives were discussed in detail and the patient agrees to proceed. - Risks discussed include but are not limited to: radiation exposure, anxiety during testing and while awaiting results, false negatives, false positives and possibility of additional intervention such as further imaging or surgical procedures for benign disease. - Benefits are obviously detection of lung cancer at an early stage which can lead to improved outcomes. - Discussed the importance of screening program compliance with adherence to yearly LDCT scan as scheduled - or sooner interval scans for personalized screening regimen. - Discussed follow up plan. Our office will send a letter discussing results and if needed set up phone call and office visit based on CT findings. - Patient educated on results categorization and the management decisions for suspicious findings potentially found on the screening LDCT scan. Any patient with a Lung RADS score of 3 or 4 will be reviewed by a multidisciplinary team at [facility] to form a plan of action in regards to scan findings. - If further work up is warranted for a suspicious lung finding this will be followed by the Lung Cancer Screening program in conjunction with the Thoracic Surgery Department at [facility]. - A copy of the office note and LDCT will be sent to the patient's PCP - as well as documentation on any associated further plans of care. - Incidental findings on LDCT are the PCP's responsibility. These findings are indicated with an S finding on the LDCT Assessment. A note discussing the findings will be sent to the PCP who is then responsible for further management. - All questions answered.? Coding Level of Care Code Lung Cancer Screening G0296 Diagnoses Nicotine dependence, cigarettes, uncomplicated F17.210
--- OUTSIDE RECORDS SUMMARY | 2024-06-05 11:30 | XMS_ITS | Clinical Summary ---
Author Organization [facility] ity Address [address] [place] [address] Care Team Providers Care Contract Loader Name Role Phone Girma Reynolds MD Primary Care Provider [phone] Social History Tobacco Use Types Packs/Day Years [...] Vaccine ( - 2023-2 5 season) 2023 Colorectal Cancer Screening: Colonoscopy 12/03/2023 Depression Screening 12/03/2023 Falls Risk Assessment 12/03/2023 Hepatitis C Screening 12/03/2023 Osteoporosis Screening (Bone Density Screening) 12/03/2023 Social Influencers of Health Screening 12/03/2023 Influenza Vaccine (Season Ended) 2024 RSV Immunization Adult Patie nts (1 - 1-dose 75+ series) 2029 HIB [...] age to complete this topic Meningococcal B Vaccine Aged Out No l onger eligible based on patient's age to complete this topic RSV Immunization Patients Un ty 20 months Aged Out No longer eligible b ased on patient's age to complete this topic Varicella Vaccines Aged Out No longer eligible based on patient's age to complete this topic Care Teams Contract Loader Relationship Specialty Start Date End Date Girma Reynolds MD PCP - General 12/02/14
== END 2024-06-05 10:53 | disposition home or self-care (01) ==
LOC: HO.HPS 10:41
PROVIDERS: PCP Nurse Practitioner Family; Referring Provider Nurse Practitioner Family; Visit Provider Physician Assistant Medical
DX: F17.210 Nicotine dependence, cigarettes, uncomplicated (principal)
CPT/HCPCS: G0296

== ENCOUNTER 2024-06-05 10:56 | Outpatient (REF) | payer MEDICARE, SELFPAY ==
--- NOTE | ~2024-06-05 | CT_ITS ---
EXAMINATION: CT LUNG SCREENING HISTORY: Smoking history TECHNIQUE: Low dose axial images were obtained from the sternal notch to upper abdomen without IV contrast per standard departmental protocol. Sagittal and coronal reformatted images were also obtained and reviewed. One or more of the following techniques was used for dose reduction: Automated exposure control, adjustment of the mA and/or kV according to patient size, use of iterative reconstruction technique. DLP: 57 mGy-cm COMPARISON: Correlation is made with PA and lateral views of the chest dated 05/12/2018. FINDINGS: Lung nodules: There is a 2.3 x 0.9 x 1.0 cm mass in the right lower lobe (series 6, image 70). There is a punctate nodule at the right lung apex (series 6, image 28). Additional 2 mm nodules are noted in the right upper lobe (series 6, images 42 and 49). There is a 3 mm nodule at the left lung base (series 6, image 92). There is linear scarring in both lungs. Emphysema: none Coronary Calcification: none Aortic Arch Calcification: none Potentially Significant Incidentals : none Additional Chest Findings: There is no pleural or pericardial effusion. No mediastinal or axillary lymphadenopathy is identified. Visualized upper abdomen: The visualized portions of the liver, spleen, and adrenals have an unremarkable unenhanced appearance. CT/CT lung screening IMPRESSION: 2.3 x 0.9 x 1.0 cm right lower lobe mass. LUNG-RADS ASSESSMENT: Lung-RADS 4B: Very Suspicious MANAGEMENT: PET/CT or soft tissue sampling is recommended. Surgical consultation is also suggested. Category S: N/A Electronically signed by: Darren Law MD 06/05/2024 12:37 PM EDT
--- OUTSIDE RECORDS SUMMARY | 2024-06-05 11:53 | XMS_ITS | Clinical Summary ---
Author Organization [facility] ity Address [address] [place] [address] Care Team Providers Care Aquaculture And Fisheries Professor Name Role Phone Girma Reynolds MD Primary Care Provider [phone] Social History Tobacco Use Types Packs/Day Years [...] age to complete this topic Care Teams Aquaculture And Fisheries Professor Relationship Specialty Start Date End Date Girma Reynolds MD PCP - General 12/02/14
== END 2024-06-05 10:57 | disposition home or self-care (01) ==
LOC: HO.CT 10:56
PROVIDERS: PCP Nurse Practitioner Family; Visit Provider Physician Assistant Medical
DX: Z12.2 Encounter for screening for malignant neoplasm of respiratory organs (principal); F17.210 Nicotine dependence, cigarettes, uncomplicated
CPT/HCPCS: 71271; G0296

== ENCOUNTER → 2024-06-05 10:59 | Outpatient (BNV) | payer MEDICARE, SELFPAY | PROVIDERS: PCP Nurse Practitioner Family; Visit Provider Radiology Diagnostic Radiology | DX: F17.210 Nicotine dependence, cigarettes, uncomplicated (principal) | CPT/HCPCS: 71271 ==

== ENCOUNTER → 2024-06-16 20:30 | Outpatient (REF) | payer MEDICARE, SELFPAY ==
--- OUTSIDE RECORDS SUMMARY | 2024-06-16 21:35 | XMS_ITS | Clinical Summary ---
Author Organization [facility] ity Address [address] [place] [address] Care Team Providers Care Salvage Machine Operator Name Role Phone Girma Reynolds MD Primary Care Provider [phone] Social History Tobacco Use Types Packs/Day Years [...] age to complete this topic Care Teams Salvage Machine Operator Relationship Specialty Start Date End Date Girma Reynolds MD PCP - General 12/02/14
== END ==
LOC: HO.SL 20:30
PROVIDERS: PCP Nurse Practitioner Family; Visit Provider Physician Assistant Medical
DX: G47.30 Sleep apnea, unspecified (principal); I48.91 Unspecified atrial fibrillation
CPT/HCPCS: 95810

== ENCOUNTER → 2024-06-16 22:31 | Outpatient (BNV) | payer MEDICARE, SELFPAY | PROVIDERS: PCP Nurse Practitioner Family; Visit Provider Psychiatry & Neurology Neurology | DX: G47.33 Obstructive sleep apnea (adult) (pediatric) (principal) | CPT/HCPCS: 95810 ==

== ENCOUNTER 2024-06-29 13:26 | Outpatient (AMB) | payer MEDICARE, SELFPAY ==
[2024-06-29 13:28] VITALS: BP 144/76; PULSE 62; O2SAT 97; BMI 43.7
--- NOTE | 2024-06-29 13:28 | MHC.OFFVIS ---
Vital Signs 06/29/24 13:28 Height 5 ft 2 in Weight 239 lb 3.225 oz BMI 43.7 BP 144/76 H Blood Pressure Location Rt brachial Position Sitting Pulse 62 Pulse Source Pulse Oximeter Pulse Oximetry (%) 97 Oxygen Delivery Method Room Air Intake Visit Reasons: Lung Mass Allergies No Known Allergies Allergy (Verified 06/29/24 13:30) HPI Comments Details: The patient is here for pulmonary evaluation. The patient is a 68 year woman found to have an abnormal CT scan lung cancer screening program. The patient is active smoker. She has tried to quit multiple times since she was able to do it ?cold turkey?. The patient apparently back 16-20 years ago she did have a pulmonary nodule she was evaluated at [facility]. She underwent a PET scan and subsequently CT-guided biopsy. It apparently was a benign process. She did not have any further follow-up that she is aware of. More recently she became part of the lung cancer screening program. On the 1st CAT scan she was found to have an at more finding. I did personally reviewed the images with the patient. She appears to have a 2 cm irregular looking nodule in the right lower lobe abutting the superior segment of the right lower lobe. It looks study is blocking the right lower lobe airway. It is concerning appearance. I do not appreciate any significant emphysema lymphadenopathy. The patient is not sure visit the lung that was biopsy. Will go ahead and request blood records from [facility]. The meantime will request a PET scan. She is going to undergo pulmonary function studies. Explained to her that even if is benign this is obstructing an airway may need to come out. We will talk after her PET scan to see if will going to on consider a diagnostic intervention versus a surgical intervention. The patient is going to work on quitting smoking. She is also going to undergo pulmonary function studies and will follow-up afterwards. [facility] Medical History (Updated 06/29/24 @ 13:50 by Kihsor Chávez MD) Pulmonary nodule 1 cm or greater in diameter Dyslipidemia Hypothyroidism Vitamin D deficiency Postmenopausal Nicotine dependence, cigarettes, uncomplicated Left wrist fracture Surgical History (Updated 06/05/24 @ 10:51 by Lanny Wells PA-C) History of lung biopsy History of surgery on left wrist History of tonsillectomy History of D&C History of History of tubal ligation Family History Father Asthma Social History Housing: House Alcohol intake: never Patient Tobacco Use Status: Current someday Tobacco user Years Smoked: (onset 20yo, 1/2ppd x 48yrs, 24PYH) e-Cigarette/Vaping Use: Never Used service: No Current occupational status: employed Cognitive needs: No Hearing needs: No Vision needs: Yes (has glasses) Review of Systems Const Denies chills, Denies daytime sleepiness, Denies fatigue, Denies fever(s), Denies poor appetite, Denies stops breathing during sleep, Denies weakness, Denies weight gain and Denies weight loss Eyes Denies loss of vision ENT Denies dizziness and Denies hearing loss Card Denies chest pain, Denies irregular heart rhythm, Denies claudication, Denies leg edema, Denies lightheadedness, Denies palpitations and Denies orthopnea Resp Reports cough Musc Denies arthralgias, Denies muscle weakness, Denies numbness and Denies other Skin/Breast Denies nail changes and Denies rash Neuro Denies Abnormal speech present, Denies dizziness, Denies loss of vision, Denies memory loss, Denies numbness and Denies weakness Psych Denies depression and Denies memory loss Endo Denies fatigue and Denies palpitations Will/Lymph Denies easy bruising Physical Exam Vital Signs: Last Vital Signs Pulse 62 06/29/24 13:28 BP 144/76 H 06/29/24 13:28 Pulse Ox 97 06/29/24 13:28 Oxygen Delivery Method Room Air 06/29/24 13:28 BMI result Body Mass Index 43.7 Const General: cooperative, comfortable and no acute distress Orientation/consciousness: patient oriented x3 HEENT Face and sinus: Yes normal facial exam, Yes face symmetric and Yes other Neck Neck: Yes full ROM and Yes supple Resp Effort & Inspection: normal respiratory effort and able to speak in complete sentences Neuro General: patient oriented x3 and moves all extremities Cognition (Neuro): normal cognition Speech: No Abnormal speech present Psych Appearance: grossly normal Attitude: cooperative Assessment & Plan Assessment & Plan (1) Pulmonary nodule 1 cm or greater in diameter: Code(s): R91.1 - Solitary pulmonary nodule Category: Medical Plan CT/PET, if abnormal will consider biopsy versus resection PFTs F/U 2-3 months Orders: Orders PET CT fusion skull to thigh Today R91.1 - Solitary pulmonary nodule Coding Level of Care Code New Pt Level 5 (07638) Diagnoses Pulmonary nodule 1 cm or greater in diameter R91.1 Time Spent (min) 60
--- OUTSIDE RECORDS SUMMARY | 2024-06-29 14:54 | XMS_ITS | Clinical Summary ---
[facility] Address [id number] [place] [address] Care Team Providers Care Liaison Planner Name Role Phone Girma Reynolds MD Primary Care Provider Social History Tobacco Use Types Packs/Day Years [...] age to complete this topic Care Teams Liaison Planner Relationship Specialty Start Date End Date Girma Reynolds MD PCP - General 12/02/14
== END 2024-06-29 13:54 | disposition home or self-care (01) ==
LOC: HO.HPS 13:26
PROVIDERS: PCP Nurse Practitioner Family; Referring Provider Physician Assistant Medical; Visit Provider Hospitalist
DX: R91.1 Solitary pulmonary nodule (principal)
CPT/HCPCS: 99205

== ENCOUNTER → 2024-06-29 13:26 | Outpatient (BNVA) | payer MEDICARE, SELFPAY | PROVIDERS: PCP Nurse Practitioner Family; Referring Provider Physician Assistant Medical; Visit Provider Hospitalist | DX: R91.1 Solitary pulmonary nodule (principal) | CPT/HCPCS: 99202 ==

== ENCOUNTER 2024-07-08 11:26 | Outpatient (REF) | payer MEDICARE, SELFPAY ==
--- NOTE | 2024-07-08 11:47 | PFT_ITS ---
Spirometry [] Lung Volumes [] Diffusion Capacity [] Methacholine Challenge [] Flow Volume Loops [] MVV [] MIP/MEP(Max inspiratory pressure/Max expiratory pressure) [] 6 Minute Walk Test [] ABG [] Interpretation [] MTDD
[2024-07-08 12:21] VITALS: PULSE 56; O2SAT 97
--- OUTSIDE RECORDS SUMMARY | 2024-07-08 12:25 | XMS_ITS | Clinical Summary ---
[facility] Address [address] [place] [address] Care Team Providers Care Paster Supervisor Name Role Phone Gimra Reynolds MD Primary Care Provider [phone] Social History Tobacco Use Types Packs/Day Years [...] age to complete this topic Care Teams Paster Supervisor Relationship Specialty Start Date End Date Girma Reynolds MD PCP - General 12/02/14
== END 2024-07-08 11:27 | disposition home or self-care (01) ==
LOC: HO.RESP 11:26
PROVIDERS: PCP Nurse Practitioner Family; Visit Provider Physician Assistant Medical
DX: R91.8 Other nonspecific abnormal finding of lung field (principal); F17.210 Nicotine dependence, cigarettes, uncomplicated
CPT/HCPCS: 94010; 94640; 94727; 94729

== ENCOUNTER → 2024-07-08 11:47 | Outpatient (BNV) | payer MEDICARE, SELFPAY | PROVIDERS: PCP Nurse Practitioner Family; Visit Provider Internal Medicine Pulmonary Disease | DX: R91.1 Solitary pulmonary nodule (principal) | CPT/HCPCS: 94060; 94727; 94729 ==

== ENCOUNTER 2024-07-14 11:00 | Outpatient (REF) | payer MEDICARE, SELFPAY ==
--- NOTE | ~2024-07-14 | PE_ITS ---
CLINICAL HISTORY: R91.1 - Solitary pulmonary nodule WHOLE-BODY PET/CT Comparison: None Technique: For the purposes of this examination, noncontrast CT was performed from skull base to mid thigh level followed by PET imaging utilizing 20.0 mCi F-18 FDG intravenously. Patient's fasting glucose level at the time of scanning was 99 mg/dL. Patient circulation time was 63 minutes. Findings: There is respiratory motion artifact. Neck: No hypermetabolic lymphadenopathy. Prominent uptake across the posterior oropharynx is associated with soft tissue prominence. Maximum SUV = 9.92. Chest: Mediastinal blood pool uptake with maximum SUV = 3.86. There is a 2.1 x 1.2 cm irregular nodule in the right lower lobe perihilar region. Maximum SUV = 2.96. Scattered atelectasis and/or scarring. Focal eventration of the right posterior hemidiaphragm. No hypermetabolic pleural or nguyen lesion. No significant pericardial effusion. Normal caliber aorta. Small hiatal hernia. Abdomen/pelvis: Background liver uptake with maximum SUV = 4.34. No hypermetabolic solid organ, nguyen region or peritoneal lesion. Gallbladder unremarkable. Atrophic uterus. Physiologic uptake in the GI and tracts with no obstructive or acute inflammatory changes. Diverticulosis coli. Musculoskeletal: No hypermetabolic lytic or blastic lesion. Impression: 1. Motion affected study. 2. 2.1 cm irregular nodule in the right lower lobe demonstrates mildly increased metabolic uptake secondary to an inflammatory or malignant process. No hypermetabolic intrathoracic lymphadenopathy. 3.Increased uptake in the posterior oropharynx is related to prominent soft tissues. Recommend clinical correlation and direct visualization for inflammatory process versus mass. No hypermetabolic lymphadenopathy in the neck. 4.No hypermetabolic metastasis below the diaphragm or in the osseous structures. This document has been electronically signed by: Dea Jensen DO on 07/15/2024 17:20:33
--- OUTSIDE RECORDS SUMMARY | 2024-07-14 12:19 | XMS_ITS | Clinical Summary ---
Author Organization [facility] ity Address [address] [place] [phone] Care Team Providers Care Zoology Teacher Name Role Phone Girma Reynolds MD Primary Care Provider [phone] Social History Tobacco Use Types Packs/Day Years [...] age to complete this topic Care Teams Zoology Teacher Relationship Specialty Start Date End Date Girma Reynolds MD PCP - General 12/02/14
== END 2024-07-14 11:01 | disposition home or self-care (01) ==
LOC: HO.PET 11:00
PROVIDERS: PCP Nurse Practitioner Family; Visit Provider Hospitalist
DX: Z13.89 Encounter for screening for other disorder (principal)

== ENCOUNTER 2024-10-01 14:26 | Outpatient (AMB) | payer MEDICARE, SELFPAY ==
[2024-10-01 14:28] VITALS: BP 146/74; PULSE 73; O2SAT 96; BMI 43.5
--- NOTE | 2024-10-01 14:28 | A.OFFVIS_ITS ---
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 The patient is active smoker. She has tried to quit multiple times since she was able to do it ?cold turkey?. The patient apparently back 16-20 years ago she did have a pulmonary nodule she was evaluated at [facility]. She underwent a PET scan and subsequently CT-guided biopsy. It apparently was a benign process. She did not have any further follow-up that she is aware of. More recently she became part of the lung cancer screening program. On the 1st CAT scan she was found to have an at more finding. I did personally reviewed the images with the patient. She appears to have a 2 cm irregular looking nodule in the right lower lobe abutting the superior segment of the right lower lobe. It looks study is blocking the right lower lobe airway. It is concerning appearance. I do not appreciate any significant emphysema lymphadenopathy. The patient is not sure visit the lung that was biopsy. Will go ahead and request blood records from [facility]. The meantime will request a PET scan. She is going to undergo pulmonary function studies. Explained to her that even if is benign this is obstructing an airway may need to come out. We will talk after her PET scan to see if will going to on consider a diagnostic intervention versus a surgical intervention. The patient is going to work on quitting smoking. She is also going to undergo pulmonary function studies and will follow-up afterwards. 10/01/2024 the patient is here for pulmonary follow-up visit. Overall the patient has been doing okay. Denies any worsening shortness of breath or cough. The patient did have pulmonary function studies which I personally reviewed. No evidence of any obstructive nor restrictive ventilatory defects. In addition to that she did undergo a PET scan back in June 2024 demonstrating some mild FDG activity of the 2 cm right lower lobe nodular density. We were able to get imaging studies from [facility] from back 2019 demonstrating similar right lower lobe nodular density. It appears to be blocking some of the airways in the superior segment of the right lower lobe. Although it appears to be about the same in size possibly just a little larger now. Likely a tumor growth. 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 Explained to her that even carcinoid tumor should be removed because they continued to grow and block the airways. We talked about a biopsy including either bronchoscopy navigating to the right lower lobe superior segment or CT-guided biopsy. Initially she thought a CT- guided biopsy would be best. However, when she heard about the potential risks including pneumothorax she opted on holding off for now. Explained to her that she really needs to get a biopsy but if she would like to hold off then will go ahead and book a repeat CAT scan for 4 months from now. In the meantime if she changes her mind she can always call. As far as his smoking the patient will continue to try to cut down. Will follow-up in 4 months after her CAT scan. [facility] Medical History (Updated 06/29/24 @ 13:50 by Kishor Chávez MD) Pulmonary nodule 1 cm or greater in diameter Dyslipidemia Hypothyroidism Vitamin D deficiency Postmenopausal Nicotine dependence, cigarettes, uncomplicated Left wrist fracture Surgical History (Updated 06/05/24 @ 10:51 by Lanny Wells PA-C) History of lung biopsy History of surgery on left wrist History of tonsillectomy History of D&C History of History of tubal ligation Family History Father Asthma Social History (Updated 10/01/24 @ 14:32 by Meaghan Nuñez [facility]) Housing: House Alcohol intake: never Patient Tobacco Use Status: Current everyday Tobacco user Years Smoked: (onset 20yo, 1/2ppd x 48yrs, 24PYH) e-Cigarette/Vaping Use: Never Used service: No Current occupational status: employed Cognitive needs: No Hearing needs: No Vision needs: Yes (has glasses) Review of Systems Const Denies chills, Denies daytime sleepiness, Denies fatigue, Denies fever(s), Denies poor appetite, Denies stops breathing during sleep, Denies weakness, Denies weight gain and Denies weight loss Eyes Denies loss of vision ENT Denies dizziness and Denies hearing loss Card Denies chest pain, Denies irregular heart rhythm, Denies claudication, Denies leg edema, Denies lightheadedness, Denies palpitations and Denies orthopnea Resp Reports cough Musc Denies arthralgias, Denies muscle weakness, Denies numbness and Denies other Skin/Breast Denies nail changes and Denies rash Neuro Denies Abnormal speech present, Denies dizziness, Denies loss of vision, Denies memory loss, Denies numbness and Denies weakness Psych Denies depression and Denies memory loss Endo Denies fatigue and Denies palpitations Will/Lymph Denies easy bruising Physical Exam Vital Signs: Last Vital Signs Pulse 73 10/01/24 14:28 BP 146/74 H 10/01/24 14:28 Pulse Ox 96 10/01/24 14:28 Oxygen Delivery Method Room Air 10/01/24 14:28 BMI result Body Mass Index 43.5 Const General: cooperative, comfortable and no acute distress Orientation/consciousness: patient oriented x3 HEENT Face and sinus: Yes normal facial exam, Yes face symmetric and Yes other Neck Neck: Yes full ROM and Yes supple Resp Effort & Inspection: normal respiratory effort and able to speak in complete sentences Neuro General: patient oriented x3 and moves all extremities Cognition (Neuro): normal cognition Speech: No Abnormal speech present Psych Appearance: grossly normal Attitude: cooperative Assessment & Plan Assessment & Plan (1) Pulmonary nodule 1 cm or greater in diameter: Code(s): R91.1 - Solitary pulmonary nodule Category: Medical (2) Nicotine dependence, cigarettes, uncomplicated: Comment: (onset 20yo, 1/2ppd x 48yrs, 24PYH) Code(s): F17.210 - Nicotine dependence, cigarettes, uncomplicated Category: Medical Plan Pt declined bx, we will repeat CT chest in 6 months from the last smoking cessation, will cut down F/U 4-5 months Orders: Orders CT chest wo IV con 4 Months R91.1 - Solitary pulmonary nodule Coding Level of Care Code Est Pt Level 4 (30648) Complex EM visit Add On G2211 Diagnoses Pulmonary nodule 1 cm or greater in diameter R91.1 Nicotine dependence, cigarettes, uncomplicated F17.210 Time Spent (min) 17
--- OUTSIDE RECORDS SUMMARY | 2024-10-01 14:29 | XMS_ITS | Clinical Summary ---
Author Organization [facility] ity Address [address] [place] [address] Care Team Providers Care Crystal Gazer Name Role Phone Girma Reynolds MD Primary Care Provider [phone] Social History Tobacco Use Types Packs/Day Years [...] season) 2023 Colorectal Cancer Screening: Colonoscopy 12/03/2023 Falls Risk Assessment 12/03/2023 Hepatitis C Screening 12/03/2023 Osteoporosis Screening (Bone Density Screening) 12/03/2023 Social Influencers of Health Screening 12/03/2023 Depression Screening 02/26/2024 Influenza Vaccine (#1) 2024 RSV Immunization Adult Patie nts (1 [...] age to complete this topic Care Teams Crystal Gazer Relationship Specialty Start Date End Date Girma Reynolds MD PCP - General 12/02/14
== END 2024-10-01 14:57 | disposition home or self-care (01) ==
LOC: HO.HPS 14:27
PROVIDERS: PCP Nurse Practitioner Family; Visit Provider Hospitalist
DX: R91.1 Solitary pulmonary nodule (principal); F17.210 Nicotine dependence, cigarettes, uncomplicated
CPT/HCPCS: 99214; G2211

== ENCOUNTER → 2024-10-01 14:26 | Outpatient (BNVA) | payer MEDICARE, SELFPAY | PROVIDERS: PCP Nurse Practitioner Family; Visit Provider Hospitalist | DX: R91.1 Solitary pulmonary nodule (principal); F17.210 Nicotine dependence, cigarettes, uncomplicated | CPT/HCPCS: 99212 ==

== ENCOUNTER 2024-10-06 08:51 | Outpatient (REF) | payer MEDICARE, SELFPAY ==
--- OUTSIDE RECORDS SUMMARY | 2024-10-06 09:12 | XMS_ITS | Clinical Summary ---
Author Organization [facility] ity Address [address] [place] [address] Care Team Providers Care Blue Print Control Clerk Name Role Phone Girma Reynolds MD Primary Care Provider [phone] Social History Tobacco Use Types Packs/Day Years [...] age to complete this topic Care Teams Blue Print Control Clerk Relationship Specialty Start Date End Date Girma Reynolds MD PCP - General 12/02/14
[2024-10-06 10:00] LABS: MANUAL DIFF FLAG NO
[2024-10-06 10:13] LABS: Appearance Urine Cloudy; Glucose Urine UA Negative (Negative); PH 5.5 (5.0-9.0); Specific Gravity - Urine 1.025 (1.005-1.025); UMIC TRIGGER UACC YES
[2024-10-06 10:18] LABS: Hematocrit 38.0 % (37.0-47.0); Hemoglobin 12.8 g/dl (12.0-16.0); Imm Gran Abs Auto 0.04 X10*3/uL (0.00-0.03); Imm Gran Pct Auto 0.5 % (0.0-0.4); Lymphocytes Absolute Auto 2.5 X10*3/uL (1.2-4.9); Mean Corpuscular HGB Conc 33.7 g/dl (31.0-35.0); Mean Corpuscular Hemoglobin 32.6 pg (27.0-33.0); Mean Corpuscular Volume 96.7 fL (80.0-98.0); NRBC Abs Auto 0.000 X10*3/uL (0.0-0.012); NRBC Pct Auto 0.0 /100WBC (0.0-0.2); Platelet Count 247 X10*3/uL (160-400); Red Blood Count 3.93 X10*6/uL (4.20-5.50); White Blood Count 8.6 X10*3/uL (4.8-10.8)
[2024-10-06 10:51] LABS: UACC Culture Trigger YES
[2024-10-06 11:39] LABS: Alanine Aminotransferase 15 U/L (0-31); Albumin Level 3.7 g/dL (3.5-5.0); Alkaline Phosphatase 104 U/L (39-117); Anion Gap 12 (12-20); Aspartate Amino Transferase 18 U/L (5-31); Blood Urea Nitrogen 14 mg/dL (9-16); Calcium 8.4 mg/dL (8.4-10.2); Carbon Dioxide 26 mmol/L (22-29); Chloride 109 mmol/L (96-108); Cholesterol 142 mg/dL (<200); Estimated Glomerular Filt Rate > 60; HDL Cholesterol 41 mg/dL (>40); Potassium 4.0 mmol/L (3.3-5.1); Sodium 143 mmol/L (135-145); Total Protein 6.5 g/dL (6.5-8.0); Triglycerides 144 mg/dL (<150)
== END 2024-10-06 08:52 | disposition home or self-care (01) ==
LOC: HO.HMGCLDS 08:51
PROVIDERS: PCP Nurse Practitioner Family; Visit Provider Nurse Practitioner Family
DX: E78.5 Hyperlipidemia, unspecified (principal); E55.9 Vitamin D deficiency, unspecified
CPT/HCPCS: 36415; 80053; 80061; 81001; 82306; 84443; 85025; 87086

== ENCOUNTER 2024-10-07 13:28 | Outpatient (AMB) | payer MEDICARE, SELFPAY ==
[2024-10-07 13:32] VITALS: BP 128/76; PULSE 59; O2SAT 96; BMI 43.7
--- NOTE | 2024-10-07 13:32 | MHC.OFFVIS ---
Vital Signs 10/07/24 13:32 Height 5 ft 2 in Weight 239 lb 2 oz BMI 43.7 BP 128/76 Blood Pressure Location Rt brachial Position Sitting Pulse 59 Pulse Source Pulse Oximeter Pulse Oximetry (%) 96 Oxygen Delivery Method Room Air Intake Visit Reasons: 3m follow up Intake Note: Patient presents follow up Sleep. PSG in chart(AHI-10, REM AHI-39, CARLOS-81%. [facility] 5[facility]20cm[facility] refused [facility] up on 07/27/24). Patient wants to discuss results before strating CPAP. Allergies No Known Allergies Allergy (Verified 10/07/24 13:34) HPI Comments Details: 69 year old female presents for a f/u of her in-lab sleep study. 06/2024 PSG c/w AHI 10 and REM AHI is 34, oxygen nadirs to 81%. She goes to bed at midnight to 1am, gets up 7am, has 1 bathroom break. She c/o of constant fatigue. She drinks 2 bottles of water 16 oz each, and 1/2 bottle of Gatorade. RLS numbness, tingling, painful cramps, r>l wakes her up at night. She gets out of bed and walks around then it feels better. She c/o r. heel pain> left heel pain, reviewed xrays bilateral foot spurs with patient. Memory is good. Mood is okay. Her diet is poor, eats late at night since she works the second shift at the [employer] and declines weight management today. She is a current 1/2 pack smoker per day, and her Vitamin D is low today. Reviewed PFTs with pt today. [facility] Medical History Pulmonary nodule 1 cm or greater in diameter Dyslipidemia Hypothyroidism Vitamin D deficiency Postmenopausal Nicotine dependence, cigarettes, uncomplicated Left wrist fracture Surgical History History of lung biopsy History of surgery on left wrist History of tonsillectomy History of D&C History of History of tubal ligation Family History Father Asthma Social History (Reviewed 10/07/24 @ 20:50 by KELLY Uribe Housing: House Alcohol intake: never Patient Tobacco Use Status: Current everyday Tobacco user Years Smoked: (onset 20yo, 1/2ppd x 48yrs, 24PYH) e-Cigarette/Vaping Use: Never Used service: No Current occupational status: employed Cognitive needs: No Hearing needs: No Vision needs: Yes (has glasses) Physical Exam Vital Signs: Last Vital Signs Pulse 59 10/07/24 13:32 BP 128/76 10/07/24 13:32 Pulse Ox 96 10/07/24 13:32 Oxygen Delivery Method Room Air 10/07/24 13:32 BMI result Body Mass Index 43.7 Const General: cooperative, comfortable and no acute distress Orientation/consciousness: patient oriented x3 HEENT Face and sinus: Yes normal facial exam, Yes face symmetric and Yes other Teeth and gingiva: other ([place] score is 4) Eyes Pupils: Equal, round and reactive pupils present Neck Neck: Yes full ROM and Yes supple Resp Effort & Inspection: normal respiratory effort and able to speak in complete sentences Neuro General: patient oriented x3 and moves all extremities Cranial nerves: Yes CN's II-XII intact bilaterally, Yes Facial sensation intact/muscles of mastication intact, Yes Equal, round and reactive pupils present, Yes Normal accommodation reflex present, Yes Bilaterally intact EOM present, Yes Normal facial strength present, Yes Midline tongue present, Yes Ability to bilaterally rotate head present and Yes Ability to bilaterally elevate shoulders present Cognition (Neuro): normal cognition Gait exam (Neuro): Normal gait present Motor exam (neuro): 5/5 motor strength present throughout and Normal motor muscle tone present throughout Psych Appearance: grossly normal Attitude: cooperative Results Reviewed Results Reviewed: PFT 06/2024 Impression: No obstructive or restrictive ventilatory defect. No bronchodilator response. Decreased expiratory reserve volume suggests extrathoracic restriction likely secondary to abdominal obesity. PSG 06/2024, AHI is 10 REM AHI is 34 and O2 Nadirs to 81%, start cpap therapy [id number] and f/u for compliance. Assessment & Plan Assessment & Plan (1) Sleep apnea: Code(s): G47.30 - Sleep apnea, unspecified Category: Medical Qualifiers: Sleep apnea type: unspecified type Qualified Code(s): G47.30 - Sleep apnea, unspecified (2) Bilateral calcaneal spurs: Code(s): M77.31 - Calcaneal spur, right foot; M77.32 - Calcaneal spur, left foot Category: Medical (3) Vitamin D deficiency: Code(s): E55.9 - Vitamin D deficiency, unspecified Category: Medical (4) Dizziness: Code(s): R42 - Dizziness and giddiness Category: Medical (5) Insomnia: Code(s): G47.00 - Insomnia, unspecified Category: Medical Qualifiers: Insomnia type: adjustment Qualified Code(s): F51.02 - Adjustment insomnia Plan RYAN and insomnia, reviewed PSG with patient today, start cpap therapy [id number] and f/u for compliance. Daily use of cpap >4hours each night. wash mask, rinse hoses, change filters and fill reservoir with water. [facility]. Foot pain bone spurs orthopedic referral Low Vitamin D continue to take daily vitamin d 2000 units otc. F/U in 3 months for compliance. Patient Instructions: Sleep Hygiene provided: set a scheduled bedtime and wake time to help regulate the circadian rhythm and balance the release of pituitary hormones. Sleep in a dark room, temperatures below 68 degrees, and no devices n bed. Limit caffeinated products 6 hours prior to bed, and limit fluids 2-4 hours prior to bed. Gentle night yoga, diffusing essential oils, and playing soft music can be relaxing. Coding Level of Care Code Est Pt Level 4 (15138) Diagnoses Sleep apnea, unspecified type G47.30 Sleep apnea type: unspecified type Bilateral calcaneal spurs M77.31; M77.32 Vitamin D deficiency E55.9 Dizziness R42 Adjustment insomnia F51.02 Insomnia type: adjustment
--- OUTSIDE RECORDS SUMMARY | 2024-10-07 13:55 | XMS_ITS | Clinical Summary ---
Author Organization [facility] ity Address [address] [place] [address] Care Team Providers Care Service Attendant Cafeteria Name Role Phone Girma Reynolds MD Primary Care Provider [phone] Social History Tobacco Use Types Packs/Day Years [...] age to complete this topic Care Teams Service Attendant Cafeteria Relationship Specialty Start Date End Date Girma Reynolds MD PCP - General 12/02/14
== END 2024-10-07 14:33 | disposition home or self-care (01) ==
LOC: HO.HSMS 13:29
PROVIDERS: PCP Nurse Practitioner Family; Visit Provider Physician Assistant Medical
DX: G47.30 Sleep apnea, unspecified (principal); M77.31 Calcaneal spur, right foot; M77.32 Calcaneal spur, left foot; E55.9 Vitamin D deficiency, unspecified; R42 Dizziness and giddiness; F51.02 Adjustment insomnia
CPT/HCPCS: 99214

== ENCOUNTER → 2024-10-07 13:28 | Outpatient (BNVA) | payer MEDICARE, SELFPAY | PROVIDERS: PCP Nurse Practitioner Family; Visit Provider Physician Assistant Medical | DX: F51.02 Adjustment insomnia (principal); R42 Dizziness and giddiness; E55.9 Vitamin D deficiency, unspecified; M77.31 Calcaneal spur, right foot; G47.30 Sleep apnea, unspecified; Z99.89 Dependence on other enabling machines and devices; F17.210 Nicotine dependence, cigarettes, uncomplicated | CPT/HCPCS: 99212 ==

== ENCOUNTER 2024-10-12 13:33 | Outpatient (AMB) | payer MEDICARE, SELFPAY ==
[2024-10-12 13:39] VITALS: BP 122/86; PULSE 63; RESP 16; TEMP 36.7; O2SAT 97; BMI 43.5
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
--- OUTSIDE RECORDS SUMMARY | 2024-10-12 14:28 | XMS_ITS | Clinical Summary ---
Author Organization [facility] ity Address [id number] [place] [id number] Care Team Providers Care Ic Designer [employer] Name Role Phone Girma Reynolds MD Primary Care Provider [phone] Social History Tobacco Use Types Packs/Day Years [...] age to complete this topic Care Teams Ic Designer [employer] Relationship Specialty Start Date End Date Girma Reynolds MD PCP - General 12/02/14
== END 2024-10-12 14:52 | disposition home or self-care (01) ==
LOC: HO.HMCC 13:34
PROVIDERS: PCP Nurse Practitioner Family; Visit Provider Nurse Practitioner Family
DX: R00.2 Palpitations (principal); L98.9 Disorder of the skin and subcutaneous tissue, unspecified

== ENCOUNTER → 2024-10-12 13:33 | Outpatient (BNVA) | payer MEDICARE, SELFPAY | PROVIDERS: PCP Nurse Practitioner Family; Visit Provider Nurse Practitioner Family | DX: R00.2 Palpitations (principal); L98.9 Disorder of the skin and subcutaneous tissue, unspecified; Z13.31 Encounter for screening for depression | CPT/HCPCS: 96127; 99212 ==